=== PATIENT | male | born 1970 | race African-American/Black ===

== ENCOUNTER 2023-07-23 09:11 | Inpatient (IN) | payer OTHER ==
[~2023-07-23] VITALS: Ht 177.8 cm; Wt 67.6 kg
[2023-07-23 09:19] VITALS: O2SAT 100
[2023-07-23 09:38] LABS: HEMATOCRIT. 45.6 % (42.0-52.0); HEMOGLOBIN. 15.2 g/dL (14.0-18.0); MEAN CORPUSCULAR HEMOGLOBIN 28.4 pg (28.0-32.0); MEAN CORPUSCULAR HGB CONC 33.3 g/dL (31.0-37.0); MEAN CORPUSCULAR VOLUME 85.2 fL (80.0-94.0); PLATELET 199 x1000/uL (130-400); RED BLOOD CELL COUNT 5.36 mill/uL (4.7-6.1); RED CELL DISTRIBUTION WIDTH 13.6 % (11.6-14.6); WHITE BLOOD COUNT 7.1 x1000/uL (4.5-11.0)
[2023-07-23 09:39] LABS: DIFFERENTIAL COMMENT 1
[2023-07-23 09:52] LABS: INR 1.1; PROTHROMBIN TIME 11.5 sec (9.6-11.0)
[2023-07-23 10:23] LABS: ALANINE AMINOTRANSFERASE 167 IU/L (10-49); ASPARTATE AMINOTRANSFERASE 149 IU/L (<34); BILIRUBIN TOTAL 0.7 mg/dL (0.1-1.0); CALCIUM 9.8 mg/dL (8.7-10.4); CARBON DIOXIDE 23 mEq/L (21-32); CHLORIDE 95 mEq/L (98-107); CREATININE 1.6 mg/dL (0.6-1.3); GLUCOSE 106 mg/dL (70-105); PROTEIN TOTAL 7.9 g/dL (6.0-8.3); SODIUM 131 mEq/L (136-145); UREA NITROGEN BLOOD 16 mg/dL (9-23)
[2023-07-23] MEDS ORDERED: ACETAMINOPHEN 325MG TABLET PO ONE (10:45)
[2023-07-23] MEDS ORDERED: SODIUM CHLORIDE 0.9% 1,000 ML IV ONE (11:45)
[2023-07-23 15:16] LABS: PLATELET ESTIMATE NORMAL
[2023-07-23 16:12] LABS: CLARITY URINE CLOUDY (CLEAR); COLOR URINE YELLOW (YELLOW); GLUCOSE URINE NEGATIVE (NEGATIVE); KETONES URINE TRACE (NEGATIVE); LEUKOCYTE ESTERASE URINE NEGATIVE (NEGATIVE); NITRITE URINE NEGATIVE (NEGATIVE); OCCULT BLOOD URINE 2+ (NEGATIVE); PROTEIN URINE 2+ (NEGATIVE); SPECIFIC GRAVITY URINE 1.016 (1.005-1.030); UROBILINOGEN URINE 0.2 E.U./dL (0.2-1.0)
[2023-07-23 16:17] LABS: BACTERIA URINE NONE SEEN; SQUAMOUS EPITHELIAL CELL URINE NONE SEEN /lpf (RARE/1+); WBC URINE 0-2 /hpf (0-2); YEAST URINE NONE SEEN
[2023-07-23 17:08] LABS: RBC URINE NONE SEEN /hpf (0-2)
[2023-07-23 17:53] VITALS: BP 124/88; PULSE 66; RESP 16; TEMP 98.9
[2023-07-23 18:00] VITALS: BP 124/88; PULSE 58; RESP 29; TEMP 97.3
[2023-07-23] MEDS ORDERED: INFLUENZA VACCINE 05/PF 0.5 ML SYRINGE IM ONE (18:15)
[2023-07-23] MEDS ORDERED: LORAZEPAM 0.5MG TABLET PO PRN (18:30)
[2023-07-23] MEDS ORDERED: ONDANSETRON HCL 4MG/2ML INJ IV PRN (18:30)
[2023-07-23] MEDS ORDERED: CLONIDINE 0.1MG TABLET PO PRN (18:30)
[2023-07-23] MEDS ORDERED: IPRATROPIUM/ALBUTEROL 0.5-3(2.5)MG/3ML NEB HHN PRN (18:30)
[2023-07-23] MEDS ORDERED: ACETAMINOPHEN 325MG TABLET PO PRN ×2 (18:30)
[2023-07-23] MEDS ORDERED: DOCUSATE SODIUM 100MG CAPSULE PO PRN (18:30)
[2023-07-23] MEDS ORDERED: NALOXONE HCL 0.4MG/ML VIAL IV PRN (18:30)
[2023-07-23 20:00] VITALS: BP 98/56; PULSE 103; RESP 18; TEMP 98
[2023-07-24] VITALS: PULSE 102; RESP 18
[2023-07-24] MEDS: HYDROCODONE/ACETAMINOPHEN 5/325MG TABLET PO PRN ×5 (01:03→23:30)
[2023-07-24 04:00] VITALS: BP 97/67; PULSE 104; RESP 18; TEMP 98.4
[2023-07-24 06:55] LABS: HEMATOCRIT. 42.9 % (42.0-52.0); HEMOGLOBIN. 14.8 g/dL (14.0-18.0); MEAN CORPUSCULAR HEMOGLOBIN 29.1 pg (28.0-32.0); MEAN CORPUSCULAR HGB CONC 34.4 g/dL (31.0-37.0); MEAN CORPUSCULAR VOLUME 84.5 fL (80.0-94.0); MEAN PLATELET VOLUME 9.3 fl (7.4-10.4); PLATELET 176 x1000/uL (130-400); RED BLOOD CELL COUNT 5.08 mill/uL (4.7-6.1); RED CELL DISTRIBUTION WIDTH 13.3 % (11.6-14.6); WHITE BLOOD COUNT 4.7 x1000/uL (4.5-11.0)
[2023-07-24 07:05] LABS: CALCIUM 8.9 mg/dL (8.7-10.4); CARBON DIOXIDE 22 mEq/L (21-32); CHLORIDE 103 mEq/L (98-107); CREATININE 1.4 mg/dL (0.6-1.3); DIFFERENTIAL COMMENT 1; GLUCOSE 89 mg/dL (70-105); POTASSIUM 3.6 mEq/L (3.5-5.1); SODIUM 136 mEq/L (136-145); UREA NITROGEN BLOOD 22 mg/dL (9-23)
[2023-07-24 08:00] VITALS: BP 122/64; PULSE 87; RESP 18; TEMP 97.4
[2023-07-24] MEDS ORDERED: SODIUM CHLORIDE 0.9% 1000ML BAG (SEPSIS BOLUS) IV ONE (08:30)
[2023-07-24] MEDS ORDERED: SODIUM CHLORIDE 0.9% 500 ML IV SCH (08:45)
[2023-07-24] MEDS: DEXT 5%/LACTATED RINGERS 1,000 ML IV SCH ×2 (10:09→23:31)
[2023-07-24 12:00] VITALS: BP 124/64; PULSE 88; RESP 18; TEMP 97.6
[2023-07-24 12:31] LABS: ALANINE AMINOTRANSFERASE 154 IU/L (10-49); ALBUMIN 4.4 g/dL (3.2-4.8); ASPARTATE AMINOTRANSFERASE 149 IU/L (<34); BILIRUBIN DIRECT 0.2 mg/dL (<=3.0); BILIRUBIN TOTAL 0.7 mg/dL (0.1-1.0); CREATINE KINASE 4574 IU/L (46-171); PROTEIN TOTAL 6.8 g/dL (6.0-8.3)
[2023-07-24 14:26] LABS: PLATELET ESTIMATE NORMAL
[2023-07-24 16:00] VITALS: BP 133/64; PULSE 80; RESP 18; TEMP 97.7
[2023-07-24 20:00] VITALS: BP 112/66; PULSE 71; RESP 17; TEMP 97
[2023-07-25] VITALS: BP 125/78; PULSE 60; RESP 20; TEMP 98.9
[2023-07-25 04:00] VITALS: BP 110/68; PULSE 71; RESP 16; TEMP 99
[2023-07-25] MEDS: HYDROCODONE/ACETAMINOPHEN 5/325MG TABLET PO PRN (06:01)
[2023-07-25 08:00] VITALS: BP 119/51; PULSE 94; RESP 20
[2023-07-25] MEDS: DEXT 5%/LACTATED RINGERS 1,000 ML IV SCH (09:44)
[2023-07-25] MEDS ORDERED: TH25 MT (10:02)
[2023-07-25 10:30] VITALS: TEMP 97.7
[2023-07-25 15:55] LABS: *AMPHETAMINES SCREEN URINE NEGATIVE (NEGATIVE); *BARBITURATES SCREEN URINE NEGATIVE (NEGATIVE); *BENZODIAZEPINES SCREEN URINE NEGATIVE (NEGATIVE); *COCAINE SCREEN URINE NEGATIVE (NEGATIVE); CANNABINOID URINE SCREEN PRESUMPTIVE POSITIVE (NEGATIVE); ECSTASY MDMA SCREEN URINE NEGATIVE (NEGATIVE); METHADONE URINE SCREEN Neg (NEGATIVE); OPIATES URINE SCREEN PRESUMPTIVE POSITIVE (NEGATIVE); PHENCYCLIDINE URINE SCREEN NEGATIVE (NEGATIVE)
== END 2023-07-25 11:05 | disposition home or self-care (01) | DRG 351 ==
LOC: ER 09:11 → 5EST 12:35
PROVIDERS: ADMIT Internal Medicine; ATTEND Internal Medicine
DX: M79.18 Myalgia, other site (principal); N17.9 Acute kidney failure, unspecified; E87.1 Hypo-osmolality and hyponatremia; R06.6 Hiccough; D72.821 Monocytosis (symptomatic); D72.825 Bandemia; E86.0 Dehydration; G47.00 Insomnia, unspecified; M54.9 Dorsalgia, unspecified; R31.9 Hematuria, unspecified; R74.01 Elevation of levels of liver transaminase levels; R80.9 Proteinuria, unspecified
CPT/HCPCS: 36415; 71045; 80048; 80053; 80076; 80305; 81003; 82550; 85025; 99285; J7030; J7121